=== PATIENT | male | born 1955 | race American Indian/Alaskan Native ===

== ENCOUNTER 2020-09-17 09:08 | Day surgery (SDC) | payer MEDICARE ==
[2020-09-17] MEDS ORDERED: SODIUM CHLORIDE 0.9% 1000 ML 1,000 ML ONE (09:45)
[2020-09-17] MEDS ORDERED: SODIUM CHLORIDE 0.9% 1000 ML 1,000 ML IV SCH (10:00)
--- NOTE | 2020-09-17 10:50 | Anesthesia Consultation ---
Anesthesia Consult and Med Hx Date of service: 09/17/20 - Airway Anesthetic Teeth Evaluation: Good ROM Head & Neck: Adequate Mental/Hyoid Distance: Adequate Mallampati Class: Class II Intubation Access Assessment: Probably Good - Pre-Operative Health Status ASA Pre-Surgery Classification: ASA3 Proposed Anesthetic Plan: MAC - Cardiovascular System Hx Hypertension: Yes (no problem after weight loss) - Hematic Hx Anemia: Yes (required blood transfusion x 6 (09/12/20)) - Other Systems Hx Cancer: Yes (colon mass?) Hx Obesity: Yes (BMI 31.1, Lost 50 lbs in 9 months)
--- NOTE | 2020-09-17 10:54 | Anesthesia Day of Surgery ---
Anesthesia Day of Surgery - Day of Surgery Patient Examined: Yes Patient H&P Reviewed: Yes Patient is NPO: Yes
[2020-09-17] MEDS ORDERED: propofoL 200 MG/20 ML VIAL IV ONE ×2 (10:58→11:04)
[2020-09-17] MEDS ORDERED: LIDOCAINE MPF (2%) 20 MG/1 ML VIAL 5 ML ONE (10:58)
--- NOTE | 2020-09-17 11:31 | Short Stay Summary ---
Short Stay Documentation Date of service: 09/17/20 - History H&P: obtained from office - Allergies and Medications Current Medications: Allergies No Known Allergies Allergy (Unverified 09/17/20 09:44) - Brief post op/procedure progress note Date of procedure: 09/17/20 Findings: see dictations. Estimated blood loss: none Pathology: list (biopsies of colon mass in the proximal transverse) Specimen disposition: to lab Condition: stable - Disposition Condition at discharge: Good Disposition: DC-01 TO HOME OR SELFCARE - Discharge Diagnoses (1) Iron deficiency anemia due to chronic blood loss Status: Acute Short Stay Discharge Plan Activity: other (no driving for 24 hours) Weight Bearing Status: Full Weight Bearing Diet: regular Follow up with: KLARISSA NASCIMENTO JR, MD [Primary Care Provider] - 7 Days
--- NOTE | 2020-09-17 11:32 | Operative Report ---
Operative Report Operative Report: Date of procedure: 09/17/2020 Procedure: Esophagogastroduodenoscopy Preprocedure diagnosis: Iron deficiency anemia secondary to chronic blood loss Post procedure diagnosis: Normal study Endoscopist: Dr. James Anesthesia: Monitored anesthesia care per anesthesia department Medications: Propofol per anesthesia Estimated blood loss: 0 After careful discussion of the nature and purpose of the procedure as well as details the technique risks benefits and alternatives consent was obtained. The patient was placed in the left lateral decubitus position and medicated per anesthesia. The tip of the [employer] EQ 570 video scope was passed per orum under direct vision into the esophagus and advanced into the stomach and descending duodenum. The descending duodenum the duodenal bulb and pylorus were symmetrical and normal. The scope was withdrawn into the stomach and the stomach then gently insufflated with air. The antrum was normal. The stomach was further insufflated and the scope was then retroflexed and partially withdrawn. The cardia, fundus, and body of the stomach were within normal limits and easily distensible.The scope was then withdrawn in the forward position. The esophagogastric junction was at 41 cm. The esophageal body was normal throughout. The procedure was was well tolerated and the patient was observed in recovery. Impressions: Normal upper digestive tract. Plan: Further evaluation with colonoscopy. Electronically signed: Fritz James MD
--- NOTE | 2020-09-17 11:37 | Operative Report ---
Operative Report Operative Report: Date of procedure: 09/17/2020 Preprocedure diagnosis: Iron deficiency anemia secondary to chronic blood loss Post procedure diagnosis: Large, circumferential friable mass in the proximal transverse colon nearly obstructing. Consistent with cancer. Procedure: Colonoscopy to the cecum and biopsies of the transverse colon mass. Endoscopic tattooing distal to the mass. Endoscopist: Dr. James Anesthesia: Monitored anesthesia care per anesthesia department Estimated blood loss: 0 Medications: Monitored anesthesia care. See separate report by anesthesia for details. After careful discussion of the nature and purpose of the procedure as well as details of the technique risks benefits and alternatives the patient gave consent. Please see recent history and physical from the office. The patient was placed in the left lateral decubitus position and medicated per anesthesia. A rectal exam was performed sphincter tone was normal there were no masses palpable. The [employer] 570 scope was passed transanally and advanced under continuous direct vision without difficulty to the cecum. There was a large friable circumferential mass in the proximal transverse colon which was carefully negotiated with the scope to allow passage to the cecum. The colon was well prepared. The cecum was normal. The ascending colon was normal and on forward and retroflexed views. The proximal transverse colon mass was approximately 8 to 10 cm in length, circumferential, friable and nearly obstructing. The lesion was grossly malignant in appearance. Multiple biopsies were taken from the lesion and endoscopic tattooing was performed a few centimeters distal to the lesion. The descending colon and sigmoid colon revealed moderate diverticulosis but otherwise were normal. The rectum was normal on forward and retroflexed views. The procedure was well-tolerated overall and the patient was observed in recovery. Conclusions: Large, friable, circumferential mass in the proximal transverse colon which is grossly malignant in appearance. The lesion has a high-grade partial obstruction. Biopsies and tattooing were performed. Moderate diverticulosis of the left colon. Plan: Await pathology results. Office appointment or video appointment next week for discussion and planning of further care which will require surgery given a near obstruction. Signed electronically: Fritz James M.D.
[2020-09-17 11:59] VITALS: BP 113/70
--- NOTE | 2020-09-17 17:28 | Post Anesthesia Evaluation ---
- Post Anesthesia Evaluation Patient Participated: Yes Airway Patent: Yes Stable Respiratory Function: Yes Nausea/Vomiting: No Temp > 96.8F: Yes Pain Manageable: Yes Adequeate Hydration: Yes Anesthesia Complications: No Block Receding Appropriately: Not Applicable Patient on Ventilator: No
== END 2020-09-17 09:09 | disposition home or self-care (01) ==
LOC: GIO 09:08
PROVIDERS: ATTEND Internal Medicine Gastroenterology
DX: D50.0 Iron deficiency anemia secondary to blood loss (chronic) (principal); K57.30 Diverticulosis of large intestine without perforation or abscess without bleeding; K63.89 Other specified diseases of intestine; I10 Essential (primary) hypertension; E66.9 Obesity, unspecified; Z85.038 Personal history of other malignant neoplasm of large intestine; Z68.31 Body mass index [BMI] 31.0-31.9, adult
CPT/HCPCS: 43235; 45380; 45381; 88305; J2704; J7030